=== PATIENT | male | born 1945 | race Caucasian/White ===

== ENCOUNTER → 2020-11-23 14:16 | Outpatient (CLI) | payer MEDICARE ==
[2010-04-30 08:31] VITALS: BMI 33.0
[2020-11-23 14:28] LABS: INR 1.77 (0.85-1.17); PROTIME 19.1 SECONDS (11.6-15.0)
== END | disposition home or self-care (01) ==
LOC: D.LABREF 14:16
PROVIDERS: ATTEND Specialist
DX: Z79.01 Long term (current) use of anticoagulants (principal); Z47.1 Aftercare following joint replacement surgery; I48.91 Unspecified atrial fibrillation